=== PATIENT | female | born 1965 | race Caucasian/White ===

== ENCOUNTER → 2017-01-12 | Outpatient (CLI) | payer BC | END | disposition disaster alternative care site (69) | LOC: GAIR 19:31 | DX: A41.9 Sepsis, unspecified organism (principal); R65.21 Severe sepsis with septic shock; N19 Unspecified kidney failure; K72.90 Hepatic failure, unspecified without coma; R10.9 Unspecified abdominal pain; R53.1 Weakness; R11.2 Nausea with vomiting, unspecified; R50.9 Fever, unspecified; Z79.891 Long term (current) use of opiate analgesic; Z79.899 Other long term (current) drug therapy; Z88.1 Allergy status to other antibiotic agents; Z88.5 Allergy status to narcotic agent; Z88.8 Allergy status to other drugs, medicaments and biological substances | CPT/HCPCS: A0422; A0431; A0436; J3010; J7050 ==